=== PATIENT | female | born 1990 | race Caucasian/White ===

== ENCOUNTER 2022-07-25 12:28 | Emergency (ER) | payer BC, OTHER ==
[2022-07-25] MEDS ORDERED: SODIUM CHLORIDE 0.9% 1000 ML INFUS.BAG IV ONE (12:44)
[2022-07-25] MEDS ORDERED: ONDANSETRON 4 MG/2 ML VIAL IVPUSH ONE (12:44)
[2022-07-25 12:51] VITALS: BP 126/85; PULSE 86; RESP 18; TEMP 98.4; BMI 33.9
[2022-07-25] MEDS ORDERED: ONDANSETRON 4 MG/2 ML VIAL ONE (13:00)
[2022-07-25] MEDS ORDERED: KETOROLAC TROMETHAMINE 30 MG/1 ML VIAL ONE (13:34)
[2022-07-25] MEDS ORDERED: KETOROLAC TROMETHAMINE 30 MG/1 ML VIAL IVPUSH ONE (13:38)
[2022-07-25 13:46] LABS: HEMATOCRIT 36.6 % (32.4-45.2); HEMOGLOBIN 13.1 G/dL (10.7-15.3); MCHC 35.7 g/dl (32.0-36.0); MEAN PLT VOLUME 8.6 fl (7.5-11.1); PLATELET COUNT 449.1 10^3/uL (134-434); RBC 4.21 10^6/uL (3.60-5.2); RDW 13.3 % (11.6-15.6); WHITE BLOOD COUNT 15.4 10^3/uL (4.0-10.8)
[2022-07-25 13:53] LABS: BILIRUBIN,TOTAL 0.5 mg/dl (0.2-1); CALCIUM 9.6 mg/dl (8.5-10); CREATININE 1.1 mg/dl (0.55-1.3); TOT PROT 7.7 g/dl (6.4-8.2)
== END 2022-07-25 14:30 | disposition home or self-care (01) ==
LOC: FER 12:28
PROC: 3E0333Z Introduction of Anti-inflammatory into Peripheral Vein, Percutaneous Approach (ICD-10-PCS; principal; 2022-07-25)
PROC: 3E033GC Introduction of Other Therapeutic Substance into Peripheral Vein, Percutaneous Approach (ICD-10-PCS; 2022-07-25)
DX: N23 Unspecified renal colic (principal); N83.201 Unspecified ovarian cyst, right side
CPT/HCPCS: 36415; 74176-TC; 76775-TC; 80053; 81003; 81025; 85027; 99285-25

== ENCOUNTER 2025-04-10 15:49 | Emergency (ER) | payer OTHER ==
[2025-04-10 15:58] VITALS: BP 120/82; PULSE 97; RESP 18; TEMP 97.5; BMI 33.9
[2025-04-10] MEDS: SODIUM CHLORIDE 1,000 ML IV STA (16:39)
[2025-04-10 16:41] LABS: ABSOLUTE IMMATURE GRANULOCYTES 0.02 x10^3/uL (0.0-0.031); BASOPHILS # 0.05 x10^3/uL (0.01-0.08); EOSINOPHIL % 0.8 % (0.7-5.8); EOSINOPHILS # 0.09 x10^3/uL (0.04-0.36); MCHC 31.5 g/dl (32.2-35.5); MEAN CELL VOLUME 84.6 fl (79.4-94.8); MEAN PLT VOLUME 10.0 fl (9.4-12.3); MONOCYTE # 0.53 x10^3/uL (0.24-0.86); MONOCYTE % 4.5 % (4.7-12.5); RDW 13.2 % (12.1-16.8)
[2025-04-10] MEDS ORDERED: ACETAMINOPHEN INJECTION 100 ML ONE (16:42)
[2025-04-10] MEDS ORDERED: FAMOTIDINE 20 MG/50 ML IVPB 20 MG/50 ML MG IVPB ONE (16:43)
[2025-04-10] MEDS ORDERED: METOCLOPRAMIDE HCL INJECTION 10 MG/2 ML VIAL ONE (16:43)
[2025-04-10 16:54] LABS: INR 1.22 (0.83-1.09); PROTHROMBIN TIME (PATIENT) 13.5 SEC (9.7-13.0)
[2025-04-10 16:57] LABS: ACTIVATED PTT 29.1 SECONDS (25.2-36.5)
[2025-04-10 17:06] LABS: ALK PHOS 51.0 U/L (45-117); CO2 25.0 mmol/L (21-32); CREATININE 0.9 mg/dl (0.6-1.3); GLUCOSE,RANDOM 130.0 mg/dl (74-106); SGOT/AST 11.0 U/L (15-37); SGPT/ALT 11.0 U/L (7-52); TOT PROT 7.1 g/dl (6.4-8.2)
[2025-04-10] MEDS: ACETAMINOPHEN 1000 MG/100 ML BAG IVPB ONE (17:17)
[2025-04-10] MEDS: FAMOTIDINE 20 MG/50 ML IVPB 20 MG/50 ML MG IVPB ONE (17:18)
[2025-04-10] MEDS: METOCLOPRAMIDE HCL INJECTION 10 MG/2 ML VIAL IVPUSH ONE (17:18)
[2025-04-10] MEDS ORDERED: diphenhydrAMINE HCL 25 MG CAPSULE (FP) PO ONE (19:00)
[2025-04-10] MEDS: diphenhydrAMINE HCL 25 MG CAPSULE (FP) PO ONE (19:11)
== END 2025-04-10 19:11 | disposition home or self-care (01) ==
LOC: FER 15:49
PROC: 3E033GC Introduction of Other Therapeutic Substance into Peripheral Vein, Percutaneous Approach (ICD-10-PCS; principal; 2025-04-10)
PROC: 3E033NZ Introduction of Analgesics, Hypnotics, Sedatives into Peripheral Vein, Percutaneous Approach (ICD-10-PCS; 2025-04-10)
PROC: 3E033GC Introduction of Other Therapeutic Substance into Peripheral Vein, Percutaneous Approach (ICD-10-PCS; 2025-04-10)
DX: R51.9 Headache, unspecified (principal); R11.2 Nausea with vomiting, unspecified; H53.149 Visual discomfort, unspecified; H53.8 Other visual disturbances
CPT/HCPCS: 36415; 70450-TC; 80053; 84703; 85025; 85610; 85730; 99285-25